=== PATIENT | male | born 1965 | race Caucasian/White ===

== ENCOUNTER 2016-11-21 11:32 | Day surgery (SDC) | payer BC ==
[2016-11-21] MEDS ORDERED: IV START KIT ONE (12:01)
[2016-11-21] MEDS ORDERED: LACTATED RINGERS 1,000 ML ONE (12:01)
[2016-11-21] MEDS ORDERED: SODIUM CHLORIDE 0.9% FLUSH 10 ML ONE (12:24)
[2016-11-21] MEDS ORDERED: PROPOFOL 40 ML IV ONE (12:26)
[2016-11-21] MEDS ORDERED: MIDAZOLAM HCL 5 MG/5 ML VIAL IV PRN (12:37)
[2016-11-21] MEDS ORDERED: FENTANYL 250 MCG/5 ML AMP IV PRN (12:37)
[2016-11-21] MEDS ORDERED: LACTATED RINGERS 1,000 ML IV SCH (12:45)
== END 2016-11-21 13:38 | disposition home or self-care (01) ==
LOC: SDC 11:32
PROVIDERS: ATTEND Family Medicine
PROC: 0DJD8ZZ Inspection of Lower Intestinal Tract, Via Natural or Artificial Opening Endoscopic (ICD-10-PCS; principal; 2016-11-21)
DX: Z12.11 Encounter for screening for malignant neoplasm of colon (principal); F41.1 Generalized anxiety disorder; N52.9 Male erectile dysfunction, unspecified
CPT/HCPCS: 45378; J7120